=== PATIENT | female | born 1990 | race Caucasian/White ===

== ENCOUNTER 2018-02-14 05:57 | Emergency (ER) | payer OTHER ==
[~2018-02-14] VITALS: Ht 157.5 cm; Wt 56.7 kg
[~2018-02-14 05:57] MED LIST: AURALGAN OTIC S14 ML OT; CELEBREX100 MG PO; SKELAXIN800 MG PO
[2018-02-14] MEDS ORDERED: KETO10TA2 PO (12:03)
[2018-02-14] MEDS ORDERED: NORFLEX100MG PO (12:03)
== END 2018-02-14 17:17 | disposition home or self-care (01) ==
LOC: ER 05:57
DX: M54.2 Cervicalgia (principal); M54.5 Low back pain

== ENCOUNTER 2023-07-19 00:10 | Emergency (ER) | payer OTHER ==
[~2023-07-19] VITALS: Ht 165.1 cm; Wt 56.7 kg
[~2023-07-19 00:10] MED LIST changes: +KETO10TA2 PO; +NORFLEX100MG PO
[2023-07-19 03:43] LABS: HEMATOCRIT 41.1 % (36.0-45.00); HEMOGLOBIN 13.8 g/dL (12.0-15.00); MEAN CELL VOLUME 89.4 fL (80.00-100.00); MEAN CORPUSCULAR HGB CONC 33.6 g/dl (32.0-36.0); PLATELET COUNT 283 K/uL (150-450); RED CELL DISTRIBUTION WIDTH 12.3 % (11.5-14.5)
[2023-07-19 04:17] LABS: CALCIUM 9.3 mg/dL (8.5-10.1); CREATININE SERUM 0.7 mg/dL (0.55-1.02); GFR 96.37; POTASSIUM 4.59 mEq/L (3.5-5.1)
[2023-07-19] MEDS ORDERED: LEVSIN/SL0.125 MG SL (05:27)
[2023-07-19] MEDS ORDERED: INTESTINEX680 M2 PO (05:27)
== END 2023-07-19 05:34 ==
LOC: ER 02:42
PROVIDERS: General Practice
DX: E86.0 Dehydration (principal); R53.1 Weakness; R19.7 Diarrhea, unspecified; Z88.0 Allergy status to penicillin

== ENCOUNTER 2024-12-27 05:17 | Day surgery (SDC) | payer OTHER ==
[2024-12-19 10:48] LABS: HEMATOCRIT 41.1 % (36.0-45.00); MEAN CELL VOLUME 89.6 fL (80.00-100.00); MEAN CORPUSCULAR HEMOGLOBIN 30.6 pg (27.00-32.0); MEAN CORPUSCULAR HGB CONC 34.1 g/dl (32.0-36.0); PLATELET COUNT 229 K/uL (150-450); RED BLOOD COUNT 4.59 M/uL (4.00-6.00); RED CELL DISTRIBUTION WIDTH 13.1 % (11.5-14.5)
[2024-12-19 11:22] LABS: INR 0.95; PARTIAL THROMBOPLASTIN TIME 25.7 SECONDS (22.0-34.0); PROTHROMBIN TIME 10.4 SECONDS (9.0-11.5)
[2024-12-19 11:33] LABS: ALBUMIN 3.6 gm/dL (3.4-5.0); BILIRUBIN TOTAL 0.52 mg/dL (0.3-1.2); CREATININE SERUM 0.56 mg/dL (0.55-1.02); GFR 123.92; GLOBULINA 3.6 G/DL (2.4-3.5); POTASSIUM 4.17 mEq/L (3.5-5.1); TOTAL PROTEIN 7.2 gm/dL (6.4-8.2)
[~2024-12-27 05:17] MED LIST changes: +INTESTINEX680 M2 PO; +LEVSIN/SL0.125 MG SL
[2024-12-27] MEDS ORDERED: POVIDONE-IODINE 118 ML BOTT TOP ONE (06:57)
[2024-12-27] MEDS ORDERED: CEFOXITIN SODIUM 2,000 MG VIAL IV ONE (06:57)
[2024-12-27] MEDS ORDERED: MORPHINE SULFATE 4 MG/ML VIAL IV PRN (09:15)
[2024-12-27] MEDS ORDERED: PROMETHAZINE HCL 50 MG/ML AMPUL IM ONE (09:15)
== END 2024-12-27 10:15 | disposition home or self-care (01) ==
LOC: CIR.AMB 05:17
PROVIDERS: ATTEND Obstetrics & Gynecology
DX: O02.1 Missed abortion (principal); Z88.0 Allergy status to penicillin

== ENCOUNTER 2025-07-11 07:12 | Emergency (ER) | payer OTHER ==
[~2025-07-11] VITALS: Ht 157.5 cm; Wt 56.7 kg
[2025-07-11] MEDS ORDERED: MECLIZINE HCL 25 MG TABLET PO STA (08:05)
[2025-07-11] MEDS ORDERED: 0.9 % SODIUM CHLORIDE 1,000 ML IV STA (08:15)
[2025-07-11] MEDS ORDERED: MECLIZINE HCL 25 MG TABLET PO ONE (08:34)
[2025-07-11 09:12] LABS: BASO % 0.4 % (0.1-1.2); EOS # 0.05 (0.04-0.54); EOS % 0.9 % (0.7-7.0); LYMPH # 1.50 (1.18-3.74); LYMPH % 26.8 % (19.3-53.1); MEAN PLATELET VOLUME 9.30 fl (9.4-12.4); MONO # 0.35 (0.24-0.82); MONO % 6.3 % (4.7-12.5); NEUT # 3.66 (1.56-6.13); NEUT % 65.2 % (34.0-71.1); RED CELL DISTRIBUTION WIDTH 12.0 % (11.6-14.4)
[2025-07-11 09:50] LABS: ALT/SGPT 19.0 U/L (12-78); AST/SGOT 14.0 U/L (15-37); BILIRUBIN TOTAL 0.66 mg/dL (0.3-1.2); BUN CREA RATIO 21.0 (7.0-25.0); CREATININE SERUM 0.73 mg/dL (0.55-1.02); GFR 90.72; GLOBULINA 3.4 G/DL (2.4-3.5); GLUCOSE FASTING 102.0 mg/dL (65-100); OSMOLALITY SERUM 280.0 MOSM/KG (275-295)
[2025-07-11 10:06] LABS: URINE APPEARANCE Clear; URINE BILIRRUBIN Negative (NEGATIVE); URINE BLOOD Negative; URINE COLOR Yellow; URINE GLUCOSE Negative (NEGATIVE); URINE KETONE Negative (NEGATIVE); URINE LEUKOCYTE Negative; URINE NITRATE Negative; URINE PROTEIN Negative (NEGATIVE); URINE UROBILINOGEN 1.0 E.U./dl
[2025-07-11 10:10] LABS: URINE BACTERIA 118.7 uL (0.0-1933); URINE EPITHELIAL CELLS 14.1 uL (0.0-38.8)
[2025-07-11 10:13] LABS: URINE CAST 0.14 uL (0.0-1.40); URINE RBC 0.4 uL (0.0-20.8); URINE WBC 0.6 uL (0.0-23.2)
[2025-07-11 10:40] VITALS: BP 112/70; O2SAT 98
== END 2025-07-11 11:28 | disposition home or self-care (01) ==
LOC: ER 07:12
PROVIDERS: General Practice
DX: R42 Dizziness and giddiness (principal); R19.7 Diarrhea, unspecified